=== PATIENT | female | born 1970 | race Native Hawaiian/Other Pacific Islander ===

== ENCOUNTER 2019-01-03 16:20 | Emergency (ER) | payer BC ==
[~2019-01-03] VITALS: Ht 162.6 cm; Wt 99.8 kg
[~2019-01-03 16:20] MED LIST: ACET-689 PO; ADDERALL30 MG OR
[2019-01-03] MEDS ORDERED: OMEP40CA PO (16:41)
[2019-01-03] MEDS ORDERED: ADDERALL30 MG PO (16:41)
[2019-01-03 17:00] VITALS: BP 139/75; TEMP 98.1
== END 2019-01-03 17:00 | disposition home or self-care (01) ==
LOC: ED 16:20
DX: S80.02XA Contusion of left knee, initial encounter (principal); S80.01XA Contusion of right knee, initial encounter; S00.83XA Contusion of other part of head, initial encounter; V43.52XA Car driver injured in collision with other type car in traffic accident, initial encounter; Y92.410 Unspecified street and highway as the place of occurrence of the external cause
CPT/HCPCS: 99282; 99283

== ENCOUNTER → 2019-06-24 20:28 | Outpatient (CLI) | payer OTHER, BC ==
[~2019-06-24 20:28] MED LIST changes: +ADDERALL30 MG PO; +OMEP40CA PO
== END | disposition home or self-care (01) ==
LOC: AMB 20:28
DX: Z04.1 Encounter for examination and observation following transport accident (principal)

== ENCOUNTER 2020-06-19 22:39 | Emergency (ER) | payer BC ==
[~2020-06-19] VITALS: Ht 162.6 cm; Wt 86.2 kg
[2020-06-20 01:52] VITALS: BP 132/75; TEMP 98.6
== END 2020-06-20 01:52 | disposition home or self-care (01) ==
LOC: ED 22:39
PROC: 0JQH0ZZ Repair Left Lower Arm Subcutaneous Tissue and Fascia, Open Approach (ICD-10-PCS; principal; 2020-06-19)
DX: S61.512A Laceration without foreign body of left wrist, initial encounter (principal); S66.822A Laceration of other specified muscles, fascia and tendons at wrist and hand level, left hand, initial encounter; W25.XXXA Contact with sharp glass, initial encounter; Y92.89 Other specified places as the place of occurrence of the external cause
CPT/HCPCS: 90471; 90715; 96372; 99283; J2270